=== PATIENT | female | born 1955 | race Caucasian/White ===

== ENCOUNTER 2019-02-21 16:04 | Emergency (ER) | payer BC ==
[~2019-02-21] VITALS: Ht 160 cm; Wt 73.9 kg
[~2019-02-21 16:04] MED LIST: ALBU2.5V8 IH; ATOR20TA58 PO; LISI10TA2 PO; LORA10TA68 PO; OMEP1CAP18 PO
--- NOTE | 2019-02-21 16:24 | PHYS DOC ---
Past Medical History Past Medical History: High Cholesterol, Hypertension (IDALIA HERNANDEZ APRN) Past Surgical History: Cholecystectomy, Hysterectomy Additional Past Surgical Histo: RIGHT AND LEFT THUMB (IDALIA HERNANDEZ APRN) Alcohol Use: Occasionally Drug Use: None (IDALIA HERNANDEZ APRN) Adult General Chief Complaint Chief Complaint: UPPER EXTREMITY INJURY HPI HPI Patient is a 63 year old female who presents with with a fall that happened around 3:00 PM today. The patient states that she was walking to her kitchen and she tripped over [employer] and fell. She states she fell with her right arm outstretched she states that she's having right wrist pain, right upper arm pain, and right shoulder pain. She has a deformity of the right shoulder. She rates her pain as 8 out of 10 in severity and sharp. She states that she was given 100 g of fentanyl and that has helped. (IDALIA HERNANDEZ APRN) Review of Systems Review of Systems Constitutional: Denies fever or chills [] Eyes: Denies change in visual acuity, redness, or eye pain [] HENT: Denies nasal congestion or sore throat [] Respiratory: Denies cough or shortness of breath [] Cardiovascular: No additional information not addressed in HPI [] GI: Denies abdominal pain, nausea, vomiting, bloody stools or diarrhea [] : Denies dysuria or hematuria [] Musculoskeletal: Reports R wrist, humerus, and shoulder pain. Integument: Denies rash or skin lesions [] Neurologic: Denies headache, focal weakness or sensory changes [] Endocrine: Denies polyuria or polydipsia [] Complete systems were reviewed and found to be within normal limits, except as documented in this note. (IDALIA HERNANDEZ APRN) Current Medications Current Medications Current Medications Medications (Trade) Dose Ordered Sig/Yani Start Time Stop Time Status Last Admin Dose Admin Fentanyl Citrate (Fentanyl 2ml Vial) 50 mcg 1X ONCE 02/21/19 17:00 02/21/19 17:01 DC 02/21/19 17:39 50 MCG Propofol (Diprivan) 200 mg 1X ONCE 02/21/19 17:00 02/21/19 17:01 DC 02/21/19 17:43 200 MG Sodium Chloride 1,000 ml @ 75 mls/hr 1X ONCE 02/21/19 17:00 02/22/19 06:19 02/21/19 17:24 75 MLS/HR (REBECCA ESQUEDA MD) Allergies Allergies Allergies Coded Allergies Type Severity Reaction Last Updated Verified dicyclomine Allergy Severe swelling 07/09/14 Yes diphenhydramine HCl Allergy Intermediate HIVES 04/26/13 Yes Sulfa (Sulfonamide Antibiotics) Allergy Mild RASH 04/26/13 Yes (REBECCA ESQUEDA MD) Physical Exam Physical Exam Constitutional: Well developed, well nourished, no acute distress, non-toxic appearance. [] HENT: Normocephalic, atraumatic, bilateral external ears normal, oropharynx moist, no oral exudates, nose normal. [] Eyes: PERRLA, EOMI, conjunctiva normal, no discharge. [] Neck: Normal range of motion, no tenderness, supple, no stridor. [] Cardiovascular:Heart rate regular rhythm, no murmur [] Lungs & Thorax: Bilateral breath sounds clear to auscultation [] Abdomen: Bowel sounds normal, soft, no tenderness, no masses, no pulsatile masses. [] Skin: Warm, dry, no erythema, no rash. [] Back: No tenderness, no CVA tenderness. [] Extremities: Tenderness to R wrist, humerus, and shoulder. Shoulder looks deformed, and appears to be dislocated. Bilateral radial pulses are equal and intact. Neurologic: Alert and oriented X 3, normal motor function, normal sensory function, no focal deficits noted. [] Psychologic: Affect normal, judgement normal, mood normal. [] (IDALIA HERNANDEZ APRN) Current Patient Data Vital Signs Vital Signs Date Time Temp Pulse Resp B/P (MAP) Pulse Ox O2 Delivery O2 Flow Rate FiO2 02/21/19 17:39 21 98 Nasal Cannula 2.0 02/21/19 16:07 97.4 67 121/63 (82) 97.4 (REBECCA ESQUEDA MD) EKG EKG [] (IDALIA HERNANDEZ APRN) Radiology/Procedures Radiology/Procedures [facility] [address] [place], [place] [id number] IMAGING REPORT Signed PATIENT: ALICJA MURPHY JACCOUNT: [id number] : 1955 LOCATION: ER AGE: 63 SEX: F EXAM STATUS: REG ER ORD. PHYSICIAN: IDALIA HERNANDEZ APRN REASON: fall PROCEDURE: WRIST 3V RIGHT EXAM: Right wrist, 3 views per HISTORY: Fall. COMPARISON: None. FINDINGS: 3 views of the right wrist are obtained. There is no fracture, dislocation or subluxation. IMPRESSION: No acute osseous finding. Electronically signed by: Nidhi Lee MD (02/21/2019 4:51 PM) [place] [id number] DICTATED and SIGNED BY: NIDHI LEE MD DATE: 02/21/[address] [address] IMAGING REPORT Signed PATIENT: ALICJA MURPHYCOUNT: [id number] : 1955 LOCATION: ER AGE: 63 SEX: F EXAM STATUS: REG ER ORD. PHYSICIAN: IDALIA HERNANDEZ APRN REASON: fall PROCEDURE: HUMERUS RIGHT EXAM: Right humerus, 2 views. HISTORY: Fall. COMPARISON: None. FINDINGS: 2 views the right humerus are obtained. There is an anterior right shoulder dislocation. No concomitant fracture is seen. IMPRESSION: Anterior right shoulder dislocation. Sonographic follow-up following closed reduction is recommended. Electronically signed by: Nidhi Lee MD (02/21/2019 4:50 PM) [place] [id number] DICTATED and SIGNED BY: NIDHI LEE MD DATE: 02/21/191649 [][address] [address] IMAGING REPORT Signed PATIENT: ALICJA MURPHYCOUNT: [id number] : 1955 LOCATION: ER AGE: 63 SEX: F EXAM STATUS: REG ER ORD. PHYSICIAN: IDALIA HERNANDEZ APRN REASON: fall PROCEDURE: SHOULDER 2+V RIGHT EXAM: Right shoulder, 2 views. HISTORY: Fall. COMPARISON: None. FINDINGS: 2 views of the right shoulder obtained. There is an anterior right shoulder dislocation. No convincing concomitant fracture is seen. There is suspected right lower lobe atelectasis. IMPRESSION: Right shoulder dislocation. Radiographic follow-up following closed reduction is recommended. Electronically signed by: Nidhi Lee MD (02/21/2019 4:48 PM) [id number] DICTATED and SIGNED BY: NIDHI LEE MD DATE: 02/21/19 5726 (IDALIA HERNANDEZ APRN) Course & Med Decision Making Course & Med Decision Making Pertinent Labs and Imaging studies reviewed. (See chart for details) Will get imaging. Discussed with patient that if pain worsen to let me know. Her pain was under control under initial assessment from Fentanyl given en route by EMS. Imaging showed a dislocated shoulder. Discussed patient with Dr. Esqueda who performed a conscious sedation and reduced shoulder. Patient was placed in shoulder immobilizer and post reduction shoulder x-ray was performed that showed the shoulder in place. Will d/c home to follow up with orthopedics. (IDALIA HERNANDEZ APRN) Dragon Disclaimer Dragon Disclaimer This electronic medical record was generated, in whole or in part, using a voice recognition dictation system. (IDALIA HERNANDEZ APRN) Departure Departure Impression: Primary Impression: Shoulder dislocation Additional Impression: Fall Disposition: 01 HOME, SELF-CARE Condition: STABLE Referrals: ADDY HESS MD (PCP) RANDALL SULLIVAN MD Patient Instructions: Shoulder Dislocation, Shoulder Immobilizer Additional Instructions: Thank you for visiting [facility]. We appreciate you trusting us with your care. If any additional problems come up don't hesitate to return to visit us. Please follow up with your primary care provider so they can plan additional care if needed and know about the problem that you had. If symptoms worsen come back to the Emergency Department. Any concerning symptoms that start such as chest pain, shortness of air, weakness or numbness on one side of the body, running high fevers or any other concerning symptoms return to the ER. Joint Reduction Procedure Joint Indication: Right shoulder dislocation Consent: Consent was obtained. Procedure: The pre-reduction exam showed distal perfusion and neurologic function to be normal.. The patient was placed in the appropriate position. Anesthesia/pain control with 50 g of fentanyl and 100 mg of propofol was given. Reduction of the right shoulder anterior dislocation was performed by manipulation. Post reduction films were obtained and revealed satisfactory reduction. A post-reduction exam revealed distal perfusion and neurologic function to be normal. The affected area was immobilized with a shoulder immobilizer. The patient tolerated the procedure well. Complications: none. (REBECCA ESQUEDA MD) Joint Indication: Joint dislocation Consent: Consent was obtained. Procedure: The pre-reduction exam showed distal perfusion and neurologic function to be normal.. The patient was placed in the appropriate position. Anesthesia/pain control [ANESTHESIA]. Reduction of the [LOCATION] was performed by [METHOD]. Post reduction films were obtained and revealed satisfactory reduction. A post-reduction exam revealed distal perfusion and neurologic function to be normal. The affected area was immobilized with [IMMOB TYPE]. The patient tolerated the procedure well. Complications: none. (IDALIA HERNANDEZ APRN) MODERATE SEDATION ASSESSMENT* RISKS/ALTERNATIVES Risks/Alternatives Risks and alternatives of this type of sedation and procedure discussed with: RISK/ALTERNATIVES: Patient (REBECCA ESQUEDA MD) Risks/Alternatives Risks and alternatives of this type of sedation and procedure discussed with: (IDALIA HERNANDEZ APRN) H & P ON CHART H & P H & P on chart and reviewed for co-morbid conditions and appropriate labs. H&P ON CHART: Yes (REBECCA ESQUEDA MD) H & P H & P on chart and reviewed for co-morbid conditions and appropriate labs. (IDALIA HERNANDEZ APRN) STATUS PREG STATUS ASSESSED: N/A (REBECCA ESQUEDA MD) MEDS/ALLERGIES REVIEWED Meds/Allergies Reviewed Medications and Allergies including time and route of recently administered narcotics and sedatives. MEDS/ALLERGIES REVIEWED: Yes (REBECCA ESQUEDA MD) Meds/Allergies Reviewed Medications and Allergies including time and route of recently administered narcotics and sedatives. (IDALIA HERNANDEZ APRN) ASA RATING ASA RATING: I (REBECCA ESQUEDA MD) AIRWAY ASSESSMENT Airway Assessment Airway patency, oral function limitations, presence of caps, crowns, dentures, partials, and ability to extend neck assessed. AIRWAY ASSESSMENT: Yes (REBECCA ESQUEDA MD) Airway Assessment Airway patency, oral function limitations, presence of caps, crowns, dentures, partials, and ability to extend neck assessed. (IDALIA HERNANDEZ APRN) MALLAMPATI SCORE MALLAMPATI SCORE: I (REBECCA ESQUEDA MD) PRE-SEDATION ASSESSMENT PRE-SEDATION ASSESSMENT: Yes (REBECCA ESQUEDA MD) Procedural Sedation Proc Sed Indication: Right shoulder anterior dislocation Consent: I have discussed with the patient and/or the patient client representative the indication, alternatives, and the possible risks and /or complications of the planned procedure and the anesthesia methods. The patient and/or patient client representative appear to understand and agree to proceed. Pre-Sedation Documentation and Exam: Normal neuro exam Airway Assessment: normal. Prior History of Anesthesia Complications: none. ASA Classification: I Sedation/ Anesthesia Plan: Fentanyl and propofol Medications Used: see nursing notes. Monitoring and Safety: The patient was placed on a tax assessor and vital signs, pulse oximetry and level of consciousness were continuously evaluated throughout the procedure. The patient was closely monitored until recovery from the medications was complete and the patient had returned to baseline status. Respiratory therapy was on standby at all times during the procedure. (The following sections must be completed) Post-Sedation Vital Signs: BP- 113/71 HR-82 o2 sat-95%(like pre-procedure b/o smoking) Post-Sedation Exam: normal Complications: none. (REBECCA ESQUEDA MD) Proc Sed Indication: [] Consent: I have discussed with the patient and/or the patient client representative the indication, alternatives, and the possible risks and /or complications of the planned procedure and the anesthesia methods. The patient and/or patient client representative appear to understand and agree to proceed. Pre-Sedation Documentation and Exam: [] Airway Assessment: normal. Prior History of Anesthesia Complications: none. ASA Classification: [] Sedation/ Anesthesia Plan: [] Medications Used: see nursing notes. Monitoring and Safety: The patient was placed on a tax assessor and vital signs, pulse oximetry and level of consciousness were continuously evaluated throughout the procedure. The patient was closely monitored until recovery from the medications was complete and the patient had returned to baseline status. Respiratory therapy was on standby at all times during the procedure. (The following sections must be completed) Post-Sedation Vital Signs: [EDM.VS] Post-Sedation Exam: [] Complications: none. Vital Signs Vital Signs Date Time Temp Pulse Resp B/P (MAP) Pulse Ox O2 Delivery O2 Flow Rate FiO2 02/21/19 17:39 21 98 Nasal Cannula 2.0 02/21/19 16:07 97.4 67 121/63 (82) 97.4 (IDALIA HERNANDEZ APRN) Problem Qualifiers Primary Impression: Shoulder dislocation Encounter type: initial encounter Laterality: right Qualified Codes: S43.004A - Unspecified dislocation of right shoulder joint, initial encounter Additional Impression: Fall Encounter type: initial encounter Qualified Codes: W19.XXXA - Unspecified fall, initial encounter IDALIA HERNANDEZ APRN Feb 21, 2019 16:24 REBECCA ESQUEDA MD Feb 21, 2019 18:22
[2019-02-21] MEDS ORDERED: fentaNYL PF VIAL 100 MCG/2 ML VIAL IV STA (16:45)
--- NOTE | 2019-02-21 16:51 | RAD ---
EXAM: Right shoulder, 2 views. HISTORY: Fall. COMPARISON: None. FINDINGS: 2 views of the right shoulder obtained. There is an anterior right shoulder dislocation. No convincing concomitant fracture is seen. There is suspected right lower lobe atelectasis. IMPRESSION: Right shoulder dislocation. Radiographic follow-up following closed reduction is recommended. Electronically signed by: Nidhi Arce MD (02/21/2019 4:48 PM) [id number]
--- NOTE | 2019-02-21 16:53 | RAD ---
EXAM: Right humerus, 2 views. HISTORY: Fall. COMPARISON: None. FINDINGS: 2 views the right humerus are obtained. There is an anterior right shoulder dislocation. No concomitant fracture is seen. IMPRESSION: Anterior right shoulder dislocation. Sonographic follow-up following closed reduction is recommended. Electronically signed by: Nidhi Arce MD (02/21/2019 4:50 PM) [id number]
--- NOTE | 2019-02-21 16:55 | RAD ---
EXAM: Right wrist, 3 views per HISTORY: Fall. COMPARISON: None. FINDINGS: 3 views of the right wrist are obtained. There is no fracture, dislocation or subluxation. IMPRESSION: No acute osseous finding. Electronically signed by: Nidhi Arce MD (02/21/2019 4:51 PM) [place] [id number]
[2019-02-21] MEDS ORDERED: IV NORMAL SALINE 1000ML BAG 1,000 ML IV ONE (17:00)
[2019-02-21] MEDS ORDERED: PROPOFOL 10 MG/ML (20ML) VIAL. IV ONE (17:00)
[2019-02-21] MEDS ORDERED: fentaNYL PF VIAL 100 MCG/2 ML VIAL IVP ONE (17:00)
[2019-02-21 17:34] VITALS: BP 160/75
[2019-02-21 18:54] VITALS: BP 108/52
--- NOTE | 2019-02-21 19:06 | RAD ---
SHOULDER RIGHT 1V History: Post reduction Technique: 2 views right shoulder. Comparison: February 21, 2019 Findings: Interval reduction anterior inferior glenohumeral dislocation. No fracture. Soft tissues unremarkable. Mild acromioclavicular DJD. Patchy right basilar opacity, may represent atelectasis, unchanged. Impression: 1. Interval reduction right glenohumeral dislocation. Electronically signed by: Mark Tovar DO (02/21/2019 7:03 PM) [facility]
== END 2019-02-21 19:07 | disposition home or self-care (01) ==
LOC: ER 16:04
DX: S43.004A Unspecified dislocation of right shoulder joint, initial encounter (principal); E78.00 Pure hypercholesterolemia, unspecified; I10 Essential (primary) hypertension; Z88.8 Allergy status to other drugs, medicaments and biological substances; Z88.2 Allergy status to sulfonamides; W18.09XA Striking against other object with subsequent fall, initial encounter; Y93.01 Activity, walking, marching and hiking; Y92.090 Kitchen in other non-institutional residence as the place of occurrence of the external cause; Y99.8 Other external cause status
CPT/HCPCS: 23650; 73020; 73030; 73060; 73110; 96374; 99285; J2704; J3010; J7030

== ENCOUNTER 2021-04-29 15:29 | Observation (INO) | payer SELFPAY ==
[~2021-04-29] VITALS: Ht 152.4 cm; Wt 76.7 kg
[~2021-04-29 15:29] MED LIST changes: +LISI10TA16 PO; -LISI10TA2 PO
[2021-04-29] MEDS ORDERED: ASPIRIN CHEWABLE 81 MG TABLET. PO ONE (16:00)
--- NOTE | 2021-04-29 16:04 | PHYS DOC ---
Past Medical History Past Medical History: High Cholesterol, Hypertension Past Surgical History: Cholecystectomy, Hysterectomy Additional Past Surgical Histo: RIGHT AND LEFT THUMB Smoking Status: Current Every Day Smoker Alcohol Use: Occasionally Drug Use: None General Adult EDM: Chief Complaint: CHEST PAIN HPI: HPI: Patient is a 65 year old female who present to ER for evaluation of substernal chest pain that radiated to her shoulder and her jaw started 3 AM this morning. Patient felt like indigestion. Patient denies any cough or trouble breathing, denies any fever. Patient denies any abdominal pain, no nausea vomiting. Patient is a smoker, she smoked 1/2 pack a day. Patient is not on oxygen at home. Patient denies any history of coronary artery disease, no history of diabetic, no history of blood clot disorder. Patient does have history of hypertension. Patient mom had history of coronary artery disease with multiple heart stents. Patient was vaccinated for COVID-19, she had not received the booster shot yet. Review of Systems: Review of Systems: Constitutional: Denies fever or chills. [] Eyes: Denies change in visual acuity. [] HENT: Denies nasal congestion or sore throat. [] Respiratory: Denies cough or shortness of breath. [] Cardiovascular: Positive for chest pain. GI: Denies abdominal pain, nausea, vomiting, bloody stools or diarrhea. [] : Denies dysuria. [] Musculoskeletal: Denies back pain or joint pain. [] Integument: Denies rash. [] Neurologic: Denies headache, focal weakness or sensory changes. [] Endocrine: Denies polyuria or polydipsia. [] Lymphatic: Denies swollen glands. [] Psychiatric: Denies depression or anxiety. [] Heart Score: C/O Chest Pain: Yes HEART Score for Chest Pain: HEART Score for Chest Pain Response (Comments) Value History Moderately Suspicious 1 ECG Nonspecific Repolarizatio 1 Age >45 - < 65 1 Risk Factors 1 or 2 Risk Factors 1 Troponin < Normal Limit 0 Total 4 Risk Factors: Risk Factors: DM, Current or recent (<one month) smoker, HTN, HLP, family history of CAD, obesity. Risk Scores: Score 0 - 3: 2.5% MACE over next 6 weeks - Discharge Home Score 4 - 6: 20.3% MACE over next 6 weeks - Admit for Clinical Observation Score 7 - 10: 72.7% MACE over next 6 weeks - Early Invasive Strategies Current Medications: Current Medications Medications (Trade) Dose Ordered Sig/Yani Start Time Stop Time Status Last Admin Dose Admin Aspirin (Aspirin Chewable) 324 mg 1X ONCE 04/29/21 16:00 04/29/21 16:01 Allergies: Allergies: Allergies Coded Allergies Type Severity Reaction Last Updated Verified dicyclomine Allergy Severe swelling 07/09/14 Yes diphenhydramine HCl Allergy Intermediate HIVES 04/26/13 Yes Sulfa (Sulfonamide Antibiotics) Allergy Mild RASH 04/26/13 Yes Physical Exam: PE: Constitutional: Well developed, well nourished, no acute distress, non-toxic appearance. [] HENT: Normocephalic, atraumatic, bilateral external ears normal, oropharynx moist, no oral exudates, nose normal. [] Eyes: PERRLA, EOMI, conjunctiva normal, no discharge. [] Neck: Normal range of motion, no tenderness, supple, no stridor. [] Cardiovascular:Heart rate regular rhythm, no murmur [] Lungs & Thorax: Bilateral breath sounds clear to auscultation [] Abdomen: Bowel sounds normal, soft, no tenderness, no masses, no pulsatile masses. [] Skin: Warm, dry, no erythema, no rash. [] Back: No tenderness, no CVA tenderness. [] Extremities: No tenderness, no cyanosis, no clubbing, ROM intact, no edema. [] Neurologic: Alert and oriented X 3, normal motor function, normal sensory function, no focal deficits noted. [] Psychologic: Affect normal, judgement normal, mood normal. [] Current Patient Data: Labs: Laboratory Tests Test 04/29/21 16:40 White Blood Count 8.3 x10^3/uL Red Blood Count 5.30 x10^6/uL Hemoglobin 15.1 g/dL Hematocrit 45.1 % Mean Corpuscular Volume 85 fL Mean Corpuscular Hemoglobin 29 pg Mean Corpuscular Hemoglobin Concent 34 g/dL Red Cell Distribution Width 14.4 % Platelet Count 98 x10^3/uL Neutrophils (%) (Auto) 48 % Lymphocytes (%) (Auto) 45 % Monocytes (%) (Auto) 4 % Eosinophils (%) (Auto) 2 % Basophils (%) (Auto) 1 % Neutrophils # (Auto) 4.0 x10^3/uL Lymphocytes # (Auto) 3.7 x10^3/uL Monocytes # (Auto) 0.3 x10^3/uL Eosinophils # (Auto) 0.1 x10^3/uL Basophils # (Auto) 0.1 x10^3/uL Sodium Level 141 mmol/L Potassium Level 3.8 mmol/L Chloride Level 104 mmol/L Carbon Dioxide Level 24 mmol/L Anion Gap 13 Blood Urea Nitrogen 17 mg/dL Creatinine 0.7 mg/dL Estimated GFR (Cockcroft-Gault) 84.5 BUN/Creatinine Ratio 24 Glucose Level 103 mg/dL Calcium Level 9.8 mg/dL Magnesium Level 2.1 mg/dL Total Bilirubin 0.5 mg/dL Aspartate Amino Transf (AST/SGOT) 32 U/L Alanine Aminotransferase (ALT/SGPT) 64 U/L Alkaline Phosphatase 118 U/L Troponin I High Sensitivity < 4 ng/L HD-Voz-U-Type Natriuretic Peptide 20 pg/mL Total Protein 7.5 g/dL Albumin 4.1 g/dL Albumin/Globulin Ratio 1.2 Lipase 90 U/L Current Medications Medications (Trade) Dose Ordered Sig/Yani Route PRN Reason Start Time Stop Time Status Last Admin Dose Admin Aspirin (Aspirin Chewable) 324 mg 1X ONCE PO 04/29/21 16:00 04/29/21 16:01 DC 04/29/21 16:06 Vital Signs: Vital Signs Date Time Temp Pulse Resp B/P (MAP) Pulse Ox O2 Delivery O2 Flow Rate FiO2 04/29/21 15:29 98.3 93 18 157/88 (111) 98 Room Air 98.3 EKG: EKG: EKG was done at 1539, heart rate of 86 bpm, sinus rhythm, no ST segment elevation. Radiology/Procedures: Radiology/Procedures: [][facility] [address] [place] [address] IMAGING REPORT Signed PATIENT: ALICJA MURPHYCOUNT: [id number] : 1955 LOCATION: ER AGE: 65 SEX: F EXAM STATUS: REG ER ORD. PHYSICIAN: LAY BACK DO REASON: CHEST PAIN PROCEDURE: PORTABLE CHEST 1V EXAM: CHEST 1 VIEW History: Chest pain COMPARISON: 07/22/2014 TECHNIQUE: Single portable radiograph of the chest FINDINGS: The cardiac silhouette is unremarkable. The lungs are clear bilaterally. Minimal left lung base atelectasis. IMPRESSION: Minimal left lung base atelectasis Electronically signed by: Chalo Chavarria MD (04/29/2021 4:18 PM) [id number] DICTATED and SIGNED BY: CHALO CHAVARRIA MD DATE: 04/29/21 [id number] Course & Med Decision Making: Course & Med Decision Making Pertinent Labs and Imaging studies reviewed. (See chart for details) Patient is a 65-year-old female who present to ER with chest pain, EKG cardiac enzymes came back normal so far, due to her risk factor patient will be admitted for observation. Dragon Disclaimer: Dragon Disclaimer: This electronic medical record was generated, in whole or in part, using a voice recognition dictation system. Departure Departure Impression: Primary Impression: Chest pain Disposition: ADMITTED INPATIENT Admitting Physician: MARYJO (Dr. Huerta) Condition: STABLE Referrals: ADDY HESS MD (PCP) LAY BACK DO Apr 29, 2021 16:04
--- NOTE | 2021-04-29 16:20 | RAD ---
EXAM: CHEST 1 VIEW History: Chest pain COMPARISON: 07/22/2014 TECHNIQUE: Single portable radiograph of the chest FINDINGS: The cardiac silhouette is unremarkable. The lungs are clear bilaterally. Minimal left lung base atelectasis. IMPRESSION: Minimal left lung base atelectasis Electronically signed by: Chalo Chavarria MD (04/29/2021 4:18 PM) [id number]
[2021-04-29 16:57] LABS: BASO # 0.1 x10^3/uL (0.0-0.2); BASO % 1 % (0-3); EOS # 0.1 x10^3/uL (0.0-0.7); EOS % 2 % (0-3); HEMATOCRIT 45.1 % (36.0-47.0); HEMOGLOBIN 15.1 g/dL (12.0-15.5); LYMPH # 3.7 x10^3/uL (1.0-4.8); LYMPH % 45 % (24-48); MEAN CORPUSCULAR HEMOGLOBIN 29 pg (25-35); MEAN CORPUSCULAR HGB CONC 34 g/dL (31-37); MEAN CORPUSCULAR VOLUME 85 fL (79-100); MONO # 0.3 x10^3/uL (0.0-1.1); MONO % 4 % (0-9); NEUT % 48 % (31-73); PLATELET COUNT 98 x10^3/uL (140-400); RED CELL DISTRIBUTION WIDTH 14.4 % (11.5-14.5); WHITE BLOOD COUNT 8.3 x10^3/uL (4.0-11.0)
[2021-04-29 17:15] LABS: CALCIUM 9.8 mg/dL (8.5-10.1); CREATININE 0.7 mg/dL (0.6-1.0); GFR 84.5; POTASSIUM 3.8 mmol/L (3.5-5.1)
[2021-04-29 17:21] LABS: ALBUMIN 4.1 g/dL (3.4-5.0); ALBUMIN/GLOBULIN RATIO 1.2 (1.0-1.7); MAGNESIUM 2.1 mg/dL (1.8-2.4); TOTAL BILIRUBIN 0.5 mg/dL (0.2-1.0); TOTAL PROTEIN 7.5 g/dL (6.4-8.2)
[2021-04-29 18:01] LABS: BILIRUBIN,URINE NEGATIVE (NEG); CLARITY,URINE CLEAR; COLOR,URINE YELLOW; NITRITE,URINE NEGATIVE (NEG); PH,URINE 5.5 (<5.0-8.0); PROTEIN,URINE NEGATIVE (NEG-TRACE); UROBILINOGEN,URINE 0.2 mg/dL (0.2 mg/dL)
[2021-04-29] MEDS ORDERED: ONDANSETRON PF 4 MG/2 ML VIAL. IVP PRN (18:15)
--- NOTE | 2021-04-29 18:16 | PDOC1 ---
History and Physical Date of Admission Date of Admission DATE: 04/29/21 TIME: 18:13 Source Source: Patient History of Present Illness History of Present Illness Ms Snyder is a 65 year old female smoker with PMHx HTN, HLD who presents to ED c/o sudden onset chest pain. Pain began at 0300 on 04/29/21. Pain was sharp, burning and radiated into both sides of her jaw and her shoulder. She though it was bad acid reflux and has taken 4-5 tums every few hours with minimal improvement. No diaphoresis. A little nausea. No cough, no abdominal pain, no vomiting. No recent travel or sick contacts. She smokes 1/2 pack a day. Patient was vaccinated for COVID-19, she had not received the booster shot yet. She does have family history of mother with premature CAD with multiple stents She did have a cardiac evaluation in 2014, negative lexiscan MPI at the time. WBC 8.3, Hb 15.1, platelets 98, NA 141, K3.8, BUN 17, CR 0.7, glucose 103, calcium 9.8, mag 2.1 total bilirubin 0.5, AST 32, ALT 64, alkaline phosphatase 118, NT proBNP 28, high-sensitivity troponin is 4, albumin 4.1 EKG sinus rhythm rate of [address] segment elevations no T WI. Chest radiograph with some possible left basilar atelectasis otherwise no acute abnormalities. Admitted for observation Past Medical History Cardiovascular: HTN, Hyperlipidemia Pulmonary: No pertinent hx CENTRAL NERVOUS SYSTEM: Other GI: GERD Heme/Onc: No pertinent hx Hepatobiliary: No pertinent hx Psych: No pertinent hx Musculoskeletal: Osteoarthritis Rheumatologic: No pertinent hx Infectious disease: No pertinent hx Renal/: No pertinent hx Endocrine: No pertinent hx Past Surgical History Past Surgical History: Cholecystectomy, Hysterectomy, Other Family History Family History: Coronary Artery Disease Social History Smoke: <1 pack per day ALCOHOL: none Drugs: None Current Problem List Problem List Problems Medical Problems: (1) Chest pain Status: Acute Current Medications Current Medications Current Medications Aspirin (Aspirin Chewable) 324 mg 1X ONCE PO Last administered on 04/29/21at 16:06; Start 04/29/21 at 16:00; Stop 04/29/21 at 16:01; Status DC Active Scripts Active Proair Hfa Inhaler (Albuterol Sulfate) 8.5 Gm Hfa.aer.ad 2 Puff IH PRN Q4-6HRS Reported Claritin (Loratadine) 10 Mg Tablet 1 Tab PO DAILY Zegerid 20 Mg Capsule (Omeprazole/Sodium Bicarbonate) 1 Each Capsule 1 Each PO DAILY Lisinopril 10 Mg Tablet 10 Mg PO DAILY Atorvastatin Calcium 20 Mg Tablet 20 Mg PO DAILY Allergies Allergies: Coded Allergies: dicyclomine (Verified Allergy, Severe, swelling, 07/09/14) diphenhydramine HCl (Verified Allergy, Intermediate, HIVES, 04/26/13) Sulfa (Sulfonamide Antibiotics) (Verified Allergy, Mild, RASH, 04/26/13) ROS General: YES: Fatigue, Malaise; No: Chills, Night Sweats, Appetite, Other PSYCHOLOGICAL ROS: YES: Anxiety; No: Behavioral Disorder, Concentration difficultie, Decreased libido, Depression, Disorientation, Hallucinations, Hostility, Irritablity, Memory difficulties, Mood Swings, Obsessive thoughts, Physical abuse, Sexual abuse, Sleep disturbances, Suicidal ideation, Other Eyes: No Blurry vision, No Decreased vision, No Double vision, No Dry eyes, No Excessive tearing, No Eye Pain, No Itchy Eyes, No Loss of vision, No Photophobia, No Scotomata, No Uses contacts, No Uses glasses, No Other HEENT: No: Heacaches, Visual Changes, Hearing change, Nasal congestion, Nasal discharge, Oral lesions, Sinus pain, Sore Throat, Epistaxis, Sneezing, Snoring, Tinnitus, Vertigo, Vocal changes, Other ALLERGY AND IMMUNOLOGY: No: Hives, Insect Bite Sensitivity, Itchy/Watery Eyes, Nasal Congestion, Post Nasal Drip, Seasonal Allergies, Other Hematological and Lymphatic: No: Bleeding Problems, Blood Clots, Blood Transfusions, Brusing, Night Sweats, Pallor, Swollen Lymph Nodes, Other ENDOCRINE: No: Breast Changes, Galactorrhea, Hair Pattern Changes, Hot Flashes, Malaise/lethargy, Mood Swings, Palpitations, Polydipsia/polyuria, Skin Changes, Temperature Intolerance, Unexpected Weight Changes, Other Breast: No New/Changing Breast Lumps, No Nipple changes, No Nipple discharge, No Other Respiratory: No: Cough, Hemoptysis, Orthopnea, Pleuritic Pain, Shortness of breath, SOB with excertion, Sputum Changes, Stridor, Tachypnea, Wheezing, Other Cardiovascular: yes Chest Pain; No Palpitations, No Orthopnea, No Paroxysmal Noc. Dyspnea, No Edema, No Lt Headedness, No Other Gastrointestinal: Yes Nausea; No Vomiting, No Abdominal Pain, No Diarrhea, No Constipation, No Melena, No Hematochezia, No Other Genitourinary: No Dysuria, No Frequency, No Incontinence, No Hematuria, No Retention, No Discharge, No Urgency, No Pain, No Flank Pain, No Other, No , No , No , No , No , No , No Musculoskeletal: No Gait Disturbance, No Joint Pain, No Joint Stiffness, No Joint Swelling, No Muscle Pain, No Muscular Weakness, No Pain In:, No Swelling In:, No Other Neurological: No Behavorial Changes, No Bowel/Bladder ControlChng, No Confusion, No Dizziness, No Gait Disturbance, No Headaches, No Impaired Coord/balance, No Memory Loss, No Numbness/Tingling, No Seizures, No Speech Problems, No Tremors, No Visual Changes, No Weakness, No Other Skin: No Dry Skin, No Eczema, No Hair Changes, No Lumps, No Mole Changes, No Mottling, No Nail Changes, No Pruritus, No Rash, No Skin Lesion Changes, No Other, No Acne Physical Exam General: Alert, Oriented X3, Cooperative, mild distress HEENT: Atraumatic, PERRLA, EOMI, Mucous membr. moist/pink Lungs: Clear to auscultation, Normal air movement Heart: S1S2, RRR, no thrills, no rubs, no gallops, no murmurs Abdomen: Normal bowel sounds, Soft, No tenderness, No hepatosplenomegaly, No masses Rectal Exam: not examined Extremities: No clubbing, No cyanosis, No edema, Normal pulses, No tenderness/swelling Skin: No rashes, No breakdown, No significant lesion Neuro: Normal gait, Normal speech, Strength at 5/5 X4 ext, Normal tone, Sensation intact, Cranial nerves 3-12 NL, Reflexes 2+ Psych/Mental Status: Mental status NL, Mood NL Vitals Vitals Vital Signs Date Time Temp Pulse Resp B/P (MAP) Pulse Ox O2 Delivery O2 Flow Rate FiO2 04/29/21 15:29 98.3 93 18 157/88 (111) 98 Room Air 98.3 Labs Labs Laboratory Tests Test 04/29/21 16:40 White Blood Count 8.3 x10^3/uL (4.0-11.0) Red Blood Count 5.30 x10^6/uL (3.50-5.40) Hemoglobin 15.1 g/dL (12.0-15.5) Hematocrit 45.1 % (36.0-47.0) Mean Corpuscular Volume 85 fL (79-100) Mean Corpuscular Hemoglobin 29 pg (25-35) Mean Corpuscular Hemoglobin Concent 34 g/dL (31-37) Red Cell Distribution Width 14.4 % (11.5-14.5) Platelet Count 98 x10^3/uL (140-400) Neutrophils (%) (Auto) 48 % (31-73) Lymphocytes (%) (Auto) 45 % (24-48) Monocytes (%) (Auto) 4 % (0-9) Eosinophils (%) (Auto) 2 % (0-3) Basophils (%) (Auto) 1 % (0-3) Neutrophils # (Auto) 4.0 x10^3/uL (1.8-7.7) Lymphocytes # (Auto) 3.7 x10^3/uL (1.0-4.8) Monocytes # (Auto) 0.3 x10^3/uL (0.0-1.1) Eosinophils # (Auto) 0.1 x10^3/uL (0.0-0.7) Basophils # (Auto) 0.1 x10^3/uL (0.0-0.2) Sodium Level 141 mmol/L (136-145) Potassium Level 3.8 mmol/L (3.5-5.1) Chloride Level 104 mmol/L (98-107) Carbon Dioxide Level 24 mmol/L (21-32) Anion Gap 13 (6-14) Blood Urea Nitrogen 17 mg/dL (7-20) Creatinine 0.7 mg/dL (0.6-1.0) Estimated GFR (Cockcroft-Gault) 84.5 BUN/Creatinine Ratio 24 (6-20) Glucose Level 103 mg/dL (70-99) Calcium Level 9.8 mg/dL (8.5-10.1) Magnesium Level 2.1 mg/dL (1.8-2.4) Total Bilirubin 0.5 mg/dL (0.2-1.0) Aspartate Amino Transf (AST/SGOT) 32 U/L (15-37) Alanine Aminotransferase (ALT/SGPT) 64 U/L (14-59) Alkaline Phosphatase 118 U/L (46-116) Troponin I High Sensitivity < 4 ng/L (4-50) BP-Inw-Q-Type Natriuretic Peptide 20 pg/mL (0-124) Total Protein 7.5 g/dL (6.4-8.2) Albumin 4.1 g/dL (3.4-5.0) Albumin/Globulin Ratio 1.2 (1.0-1.7) Lipase 90 U/L (73-393) Laboratory Tests Test 04/29/21 16:40 White Blood Count 8.3 x10^3/uL (4.0-11.0) Red Blood Count 5.30 x10^6/uL (3.50-5.40) Hemoglobin 15.1 g/dL (12.0-15.5) Hematocrit 45.1 % (36.0-47.0) Mean Corpuscular Volume 85 fL (79-100) Mean Corpuscular Hemoglobin 29 pg (25-35) Mean Corpuscular Hemoglobin Concent 34 g/dL (31-37) Red Cell Distribution Width 14.4 % (11.5-14.5) Platelet Count 98 x10^3/uL (140-400) Neutrophils (%) (Auto) 48 % (31-73) Lymphocytes (%) (Auto) 45 % (24-48) Monocytes (%) (Auto) 4 % (0-9) Eosinophils (%) (Auto) 2 % (0-3) Basophils (%) (Auto) 1 % (0-3) Neutrophils # (Auto) 4.0 x10^3/uL (1.8-7.7) Lymphocytes # (Auto) 3.7 x10^3/uL (1.0-4.8) Monocytes # (Auto) 0.3 x10^3/uL (0.0-1.1) Eosinophils # (Auto) 0.1 x10^3/uL (0.0-0.7) Basophils # (Auto) 0.1 x10^3/uL (0.0-0.2) Sodium Level 141 mmol/L (136-145) Potassium Level 3.8 mmol/L (3.5-5.1) Chloride Level 104 mmol/L (98-107) Carbon Dioxide Level 24 mmol/L (21-32) Anion Gap 13 (6-14) Blood Urea Nitrogen 17 mg/dL (7-20) Creatinine 0.7 mg/dL (0.6-1.0) Estimated GFR (Cockcroft-Gault) 84.5 BUN/Creatinine Ratio 24 (6-20) Glucose Level 103 mg/dL (70-99) Calcium Level 9.8 mg/dL (8.5-10.1) Magnesium Level 2.1 mg/dL (1.8-2.4) Total Bilirubin 0.5 mg/dL (0.2-1.0) Aspartate Amino Transf (AST/SGOT) 32 U/L (15-37) Alanine Aminotransferase (ALT/SGPT) 64 U/L (14-59) Alkaline Phosphatase 118 U/L (46-116) Troponin I High Sensitivity < 4 ng/L (4-50) GQ-Keb-M-Type Natriuretic Peptide 20 pg/mL (0-124) Total Protein 7.5 g/dL (6.4-8.2) Albumin 4.1 g/dL (3.4-5.0) Albumin/Globulin Ratio 1.2 (1.0-1.7) Lipase 90 U/L (73-393) Images Images Chest radiograph: The cardiac silhouette is unremarkable. The lungs are clear bilaterally. Minimal left lung base atelectasis. IMPRESSION: Minimal left lung base atelectasis VTE Prophylaxis Ordered VTE Prophylaxis Devices: Yes VTE Pharmacological Prophylaxi: Yes Assessment/Plan Assessment/Plan Chest pain - typical chest pain. Troponin normal and EKG not concerning, nor is CXR. Mother with CAD and smoker are risk factors. Had negative echo and MPI in 2014 HTN - on lisinopril, controlled. HLP - on lipitor, GERD - on PPI. taking zegerid OTC. Will give protonix inpatient Smoker - has 30+ pack year history. Counseled for 9 minutes on cessation. Thrombocytopenia - no clear etiology. Needs outpatient monitoring Minimally elevated alkaline phosphatase - no biliary disease history, would recommend outpatient f/u FEN - regular diet PPX - lovenox FULL CODE Dispo - observation Justifications for Admission Other Justification PERLA CAIN MD Apr 29, 2021 18:16
[2021-04-29 18:20] LABS: BACTERIA,URINE FEW /HPF (0-FEW); RBC,URINE 0 /HPF (0-2)
[2021-04-29] MEDS ORDERED: hydrALAZINE 20 MG/ML VIAL. IVP PRN (21:30)
[2021-04-29] MEDS ORDERED: ALBUTEROL SULFATE 2.5 MG/3 ML NEBU. INH PRN (21:30)
[2021-04-29] MEDS ORDERED: ACETAMINOPHEN 325 MG TABLET. PO PRN (21:30)
[2021-04-29 21:45] VITALS: BP 153/92
[2021-04-29 23:35] VITALS: BP 110/60
[2021-04-30] MEDS: PANTOPRAZOLE 40 MG TABLET.DR. PO SCH ×3 (00:42→16:54)
[2021-04-30 03:10] VITALS: BP 110/72
[2021-04-30 07:00] VITALS: BP 136/65
--- NOTE | 2021-04-30 07:15 | EKG ---
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
--- NOTE | 2021-04-30 07:38 | PDOC2 ---
SARAVANAN GOMEZ CARPENTER HELPER 04/30/21 0738: CARDIAC CONSULT DATE OF CONSULT Date of Consult DATE: 04/30/21 TIME: 07:32 REASON FOR CONSULT Reason for Consult: Chest pain REFERRING PHYSICIAN Referring Physician: Deanna SOURCE Source: Chart review, Patient HISTORY OF PRESENT ILLNESS HISTORY OF PRESENT ILLNESS This is a pleasant 65 yo female admitted for complains of chest pain. Reports that she was sleeping and this woke her up. Mid chest pressure with right jaw tightness and has been ahving indigestion for a while without relief from other meds. Denies any SOA, fatigue and palpitations. No recent falls or injury. No hx of CAD, VTE. She is vaccinated and suppose to get her booster tomorrow. PAST MEDICAL HISTORY Past Medical History Cardiovascular: HTN, Hyperlipidemia Pulmonary: COPD CENTRAL NERVOUS SYSTEM: No pertinent history GI: GERD Heme/Onc: No pertinent hx Hepatobiliary: No pertinent hx Psych: No pertinent hx Musculoskeletal: Osteoarthritis Rheumatologic: No pertinent hx Infectious disease: No pertinent hx ENT: Allergic Rhinitis Renal/: No pertinent hx Endocrine: No pertinent hx Dermatology: No pertinent hx PAST SURGICAL HISTORY Past Surgical History Cholecystectomy, Hysterectomy, Other (bilateral trigger finger repair) FAMILY HISTORY Family History Coronary Artery Disease (brother in his 40s and mother in her 50s) SOCIAL HISTORY Smoke: 1 pack per day ALCOHOL: none Drugs: None Lives: with Family CURRENT MEDICATIONS CURRENT MEDICATIONS Current Medications Medications (Trade) Dose Ordered Sig/Yani Route PRN Reason Start Time Stop Time Status Last Admin Dose Admin Aspirin (Aspirin Chewable) 324 mg 1X ONCE PO 04/29/21 16:00 04/29/21 16:01 DC 04/29/21 16:06 Pantoprazole Sodium (Protonix) 40 mg BIDAC PO 04/29/21 21:30 04/30/21 06:10 ALLERGIES ALLERGIES: Coded Allergies: dicyclomine (Verified Allergy, Severe, swelling, 07/09/14) diphenhydramine HCl (Verified Allergy, Intermediate, HIVES, 04/26/13) Sulfa (Sulfonamide Antibiotics) (Verified Allergy, Mild, RASH, 04/26/13) ROS Review of System 14 point ROS evaluated with pertinent positives noted per HPI PHYSICAL EXAM General: Alert, Oriented X3, Cooperative, No acute distress HEENT: Atraumatic, Mucous membr. moist/pink Lungs: Clear to auscultation, Normal air movement Heart: Regular rate, Normal S1, Normal S2, No murmurs Abdomen: Soft, No tenderness Extremities: No cyanosis, No edema Skin: No breakdown, No significant lesion Neuro: Normal speech, Sensation intact Psych/Mental Status: Mental status NL, Mood NL MUSCULOSKELETAL: Osteoarthritic changes both hands VITALS/I&O VITALS/I&O: Vital Signs Date Time Temp Pulse Resp B/P (MAP) Pulse Ox O2 Delivery O2 Flow Rate FiO2 04/30/21 07:00 98.1 83 18 136/65 (88) 92 Room Air 98.1 I & O 04/29/21 04/29/21 04/30/21 15:00 23:00 07:00 Intake Total 200 ml Output Total 100 ml Balance 100 ml LABS Lab: Laboratory Tests Test 04/29/21 16:40 04/29/21 17:31 04/29/21 19:50 04/29/21 22:40 White Blood Count 8.3 x10^3/uL (4.0-11.0) Red Blood Count 5.30 x10^6/uL (3.50-5.40) Hemoglobin 15.1 g/dL (12.0-15.5) Hematocrit 45.1 % (36.0-47.0) Mean Corpuscular Volume 85 fL (79-100) Mean Corpuscular Hemoglobin 29 pg (25-35) Mean Corpuscular Hemoglobin Concent 34 g/dL (31-37) Red Cell Distribution Width 14.4 % (11.5-14.5) Platelet Count 98 x10^3/uL (140-400) L Neutrophils (%) (Auto) 48 % (31-73) Lymphocytes (%) (Auto) 45 % (24-48) Monocytes (%) (Auto) 4 % (0-9) Eosinophils (%) (Auto) 2 % (0-3) Basophils (%) (Auto) 1 % (0-3) Neutrophils # (Auto) 4.0 x10^3/uL (1.8-7.7) Lymphocytes # (Auto) 3.7 x10^3/uL (1.0-4.8) Monocytes # (Auto) 0.3 x10^3/uL (0.0-1.1) Eosinophils # (Auto) 0.1 x10^3/uL (0.0-0.7) Basophils # (Auto) 0.1 x10^3/uL (0.0-0.2) Sodium Level 141 mmol/L (136-145) Potassium Level 3.8 mmol/L (3.5-5.1) Chloride Level 104 mmol/L (98-107) Carbon Dioxide Level 24 mmol/L (21-32) Anion Gap 13 (6-14) Blood Urea Nitrogen 17 mg/dL (7-20) Creatinine 0.7 mg/dL (0.6-1.0) Estimated GFR (Cockcroft-Gault) 84.5 BUN/Creatinine Ratio 24 (6-20) H Glucose Level 103 mg/dL (70-99) H Calcium Level 9.8 mg/dL (8.5-10.1) Magnesium Level 2.1 mg/dL (1.8-2.4) Total Bilirubin 0.5 mg/dL (0.2-1.0) Aspartate Amino Transferase (AST) 32 U/L (15-37) Alanine Aminotransferase (ALT) 64 U/L (14-59) H Alkaline Phosphatase 118 U/L (46-116) H Troponin I High Sensitivity < 4 ng/L (4-50) L 4 ng/L (4-50) < 4 ng/L (4-50) L NJ-Rwt-H-Type Natriuretic Peptide 20 pg/mL (0-124) Total Protein 7.5 g/dL (6.4-8.2) Albumin 4.1 g/dL (3.4-5.0) Albumin/Globulin Ratio 1.2 (1.0-1.7) Lipase 90 U/L (73-393) Urine Collection Type Unknown Urine Color Yellow Urine Clarity Clear Urine pH 5.5 (<5.0-8.0) Urine Specific [place] 1.010 (1.000-1.030) Urine Protein Negative mg/dL (NEG-TRACE) Urine Glucose (UA) Negative mg/dL (NEG) Urine Ketones (Stick) Negative mg/dL (NEG) Urine Blood Trace (NEG) Urine Nitrite Negative (NEG) Urine Bilirubin Negative (NEG) Urine Urobilinogen Dipstick 0.2 mg/dL (0.2 mg/dL) Urine Leukocyte Esterase Negative (NEG) Urine RBC 0 /HPF (0-2) Urine WBC 1-4 /HPF (0-4) Urine Squamous Epithelial Cells Few /LPF Urine Bacteria Few /HPF (0-FEW) Thyroid Stimulating Hormone (TSH) 1.885 uIU/mL (0.358-3.74) Laboratory Tests 04/29/21 16:40 Laboratory Tests 04/29/21 16:40 ECHOCARDIOGRAM ECHOCARDIOGRAM <Conclusion> The left ventricle is normal size. The left ventricular systolic function is normal and the ejection fraction is within normal range. The Ejection Fraction is 60-65%. There is no significant aortic valvular stenosis. Doppler and Color Flow revealed no significant aortic regurgitation. Doppler and Color Flow revealed trace mitral regurgitation. Doppler and Color Flow revealed mild tricuspid regurgitation. The PA pressure was estimated at 38 mmHg. There is no evidence of significant pericardial effusion. DATE: 07/23/141808 STRESS TEST STRESS TEST Conclusion 1. No EKG evidence of stress-induced ischemia. 2. Nuclear images showed no reversible ischemia or infarct. 3. Normal left ventricular systolic function with an ejection fraction of greater than 70%. 4. Low risk Lexiscan nuclear stress test DATE: 07/23/141805 ASSESSMENT/PLAN ASSESSMENT/PLAN 1. Chest pain: trops nml, EKG NSR. typical features 2. HTN: controlled 3. HLP 4. GERD 5. Tobaccoism 6. Family hx of CAD Recommendations 1. Discussed MPI vs LHC as she is hesitant. 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 FLP, TTE 3. Continue ASA and secondary prevention measures. 4. Smoking cessation ANDRÉS CAROLINA MD 05/01/21 0850: CARDIAC CONSULT ASSESSMENT/PLAN ASSESSMENT/PLAN Patient seen and examined 04/30/2021. Agree with HUMANITIES DIVISION CHAIR's assessment and plan as stated above. SARAVANAN GOMEZ APRN Apr 30, 2021 07:38 ANDRÉS CAROLINA MD May 01, 2021 08:50
[2021-04-30] MEDS ORDERED: ASPIRIN ENTERIC COATED 81 MG TABLET.DR. PO SCH (08:00)
[2021-04-30 08:43] LABS: CHOLESTEROL/HDL RATIO 4.3
[2021-04-30] MEDS ORDERED: LISINOPRIL 10 MG TABLET PO SCH (09:00)
[2021-04-30] MEDS ORDERED: ATORVASTATIN CALCIUM 20 MG TABLET PO SCH (09:00)
[2021-04-30] MEDS ORDERED: CETIRIZINE HCL 10 MG TABLET. PO SCH (09:00)
[2021-04-30] MEDS ORDERED: ASPI-886 PO (10:08)
--- NOTE | 2021-04-30 10:08 | PDOC ---
[employer] PROGRESS NOTE Date of Service DOS: DATE: 04/30/21 TIME: 10:03 Chief Complaint Chief Complaint Chest pain - typical chest pain. Troponin normal and EKG not concerning, nor is CXR. Mother with CAD and smoker are risk factors. Had negative echo and MPI in 2014. She wishes to complete work-up outpatient. HTN - on lisinopril, controlled. HLP - on lipitor, GERD - on PPI. taking zegerid OTC. Will give protonix inpatient Smoker - has 30+ pack year history. Counseled for 9 minutes on cessation. Thrombocytopenia - no clear etiology. Needs outpatient monitoring Minimally elevated alkaline phosphatase - no biliary disease history, would recommend outpatient f/u FEN - regular diet PPX - lovenox FULL CODE Dispo - observation History of Present Illness History of Present Illness Ms Snyder is a 65 year old female smoker with PMHx HTN, HLD who presents to ED c/o sudden onset chest pain. Pain began at 0300 on 04/29/21. Pain was sharp, burning and radiated into both sides of her jaw and her shoulder. She though it was bad acid reflux and has taken 4-5 tums every few hours with minimal improvement. No diaphoresis. A little nausea. No cough, no abdominal pain, no vomiting. No recent travel or sick contacts. She smokes 1/2 pack a day. Patient was vaccinated for COVID-19, she had not received the booster shot yet. She does have family history of mother with premature CAD with multiple stents She did have a cardiac evaluation in 2014, negative lexiscan MPI at the time. WBC 8.3, Hb 15.1, platelets 98, NA 141, K3.8, BUN 17, CR 0.7, glucose 103, calcium 9.8, mag 2.1 total bilirubin 0.5, AST 32, ALT 64, alkaline phosphatase 118, NT proBNP 28, high-sensitivity troponin is 4, albumin 4.1 EKG sinus rhythm rate of [address] segment elevations no T WI. Chest radiograph with some possible left basilar atelectasis otherwise no acute abnormalities. Admitted for observation 04/30: No further chest pain. Final troponin negative. Patient is asking for food. P.o. trial to assess the severity of what is likely GERD would be appropriate. Echocardiogram pending. Patient wants to defer an angiogram and would prefer to have an outpatient stress test for further restratification Vitals/I&O Vitals/I&O: Vital Signs Date Time Temp Pulse Resp B/P (MAP) Pulse Ox O2 Delivery O2 Flow Rate FiO2 04/30/21 09:24 83 136/65 04/30/21 07:00 98.1 18 92 Room Air 98.1 I & O 04/29/21 04/29/21 04/30/21 15:00 23:00 07:00 Intake Total 200 ml Output Total 100 ml Balance 100 ml Physical Exam General: Alert, Oriented X3, Cooperative, No acute distress Heart: Regular rate, Normal S1, Normal S2, No murmurs Abdomen: Soft, No tenderness Extremities: No cyanosis, No edema Skin: No breakdown, No significant lesion Labs Labs: Laboratory Tests Test 04/29/21 16:40 04/29/21 17:31 04/29/21 19:50 04/29/21 22:40 White Blood Count 8.3 x10^3/uL (4.0-11.0) Red Blood Count 5.30 x10^6/uL (3.50-5.40) Hemoglobin 15.1 g/dL (12.0-15.5) Hematocrit 45.1 % (36.0-47.0) Mean Corpuscular Volume 85 fL (79-100) Mean Corpuscular Hemoglobin 29 pg (25-35) Mean Corpuscular Hemoglobin Concent 34 g/dL (31-37) Red Cell Distribution Width 14.4 % (11.5-14.5) Platelet Count 98 x10^3/uL (140-400) Neutrophils (%) (Auto) 48 % (31-73) Lymphocytes (%) (Auto) 45 % (24-48) Monocytes (%) (Auto) 4 % (0-9) Eosinophils (%) (Auto) 2 % (0-3) Basophils (%) (Auto) 1 % (0-3) Neutrophils # (Auto) 4.0 x10^3/uL (1.8-7.7) Lymphocytes # (Auto) 3.7 x10^3/uL (1.0-4.8) Monocytes # (Auto) 0.3 x10^3/uL (0.0-1.1) Eosinophils # (Auto) 0.1 x10^3/uL (0.0-0.7) Basophils # (Auto) 0.1 x10^3/uL (0.0-0.2) Sodium Level 141 mmol/L (136-145) Potassium Level 3.8 mmol/L (3.5-5.1) Chloride Level 104 mmol/L (98-107) Carbon Dioxide Level 24 mmol/L (21-32) Anion Gap 13 (6-14) Blood Urea Nitrogen 17 mg/dL (7-20) Creatinine 0.7 mg/dL (0.6-1.0) Estimated GFR (Cockcroft-Gault) 84.5 BUN/Creatinine Ratio 24 (6-20) Glucose Level 103 mg/dL (70-99) Calcium Level 9.8 mg/dL (8.5-10.1) Magnesium Level 2.1 mg/dL (1.8-2.4) Total Bilirubin 0.5 mg/dL (0.2-1.0) Aspartate Amino Transf (AST/SGOT) 32 U/L (15-37) Alanine Aminotransferase (ALT/SGPT) 64 U/L (14-59) Alkaline Phosphatase 118 U/L (46-116) Troponin I High Sensitivity < 4 ng/L (4-50) 4 ng/L (4-50) < 4 ng/L (4-50) SO-Kmm-I-Type Natriuretic Peptide 20 pg/mL (0-124) Total Protein 7.5 g/dL (6.4-8.2) Albumin 4.1 g/dL (3.4-5.0) Albumin/Globulin Ratio 1.2 (1.0-1.7) Lipase 90 U/L (73-393) Urine Collection Type Unknown Urine Color Yellow Urine Clarity Clear Urine pH 5.5 (<5.0-8.0) Urine Specific [place] 1.010 (1.000-1.030) Urine Protein Negative mg/dL (NEG-TRACE) Urine Glucose (UA) Negative mg/dL (NEG) Urine Ketones (Stick) Negative mg/dL (NEG) Urine Blood Trace (NEG) Urine Nitrite Negative (NEG) Urine Bilirubin Negative (NEG) Urine Urobilinogen Dipstick 0.2 mg/dL (0.2 mg/dL) Urine Leukocyte Esterase Negative (NEG) Urine RBC 0 /HPF (0-2) Urine WBC 1-4 /HPF (0-4) Urine Squamous Epithelial Cells Few /LPF Urine Bacteria Few /HPF (0-FEW) Triglycerides Level 140 mg/dL (0-150) Cholesterol Level 215 mg/dL (0-200) LDL Cholesterol, Calculated 137 mg/dL (0-100) VLDL Cholesterol, Calculated 28 mg/dL (0-40) Non-HDL Cholesterol Calculated 165 mg/dL (0-129) HDL Cholesterol 50 mg/dL (40-60) Cholesterol/HDL Ratio 4.3 Thyroid Stimulating Hormone (TSH) 1.885 uIU/mL (0.358-3.74) Assessment and Plan Assessmemt and Plan Problems Medical Problems: (1) Chest pain Status: Acute Comment Review of Relevant I have reviewed the following items pete (where applicable) has been applied. Medications: Current Medications Medications (Trade) Dose Ordered Sig/Yani Route PRN Reason Start Time Stop Time Status Last Admin Dose Admin Aspirin (Aspirin Chewable) 324 mg 1X ONCE PO 04/29/21 16:00 04/29/21 16:01 DC 04/29/21 16:06 Atorvastatin Calcium (Lipitor) 20 mg DAILY PO 04/30/21 09:00 04/30/21 09:23 Lisinopril (Prinivil) 10 mg DAILY PO 04/30/21 09:00 04/30/21 09:24 Cetirizine HCl (ZyrTEC) 10 mg DAILY PO 04/30/21 09:00 04/30/21 09:23 Aspirin (Ecotrin) 81 mg [id number] PO 04/30/21 08:00 04/30/21 09:23 Pantoprazole Sodium (Protonix) 40 mg BIDAC PO 04/29/21 21:30 04/30/21 06:10 Justifications for Admission Other Justification PERLA CAIN MD Apr 30, 2021 10:08
[2021-04-30 11:00] VITALS: BP 132/70
--- NOTE | 2021-04-30 11:54 | NUR ---
SS following for discharge planning. SS reviewed pt chart and discussed with pt RN. Pt is from home and is currently on room air. Cardiology consulted. ECHO ordered. Self pay. Med Assist following. SS will continue to follow for discharge planning.
[2021-04-30 14:52] VITALS: BP 103/60
--- NOTE | 2021-04-30 16:35 | CARD ---
MR#: [id number] Date of Study: 04/30/2021 Ordering Physician: SARAVANAN GOMEZ, Referring Physician: SARAVANAN GOMEZ, Tech: Dayanara Harman Taina, [facility] APPROVED REPORT EXAM: Two-dimensional and M-mode echocardiogram with Doppler and color Doppler. Other Information Quality : AverageHR: 71bpm INDICATION Chest Pain RISK FACTORS Hypertension Hyperlipidemia Smoking 2D DIMENSIONS Left Atrium(2D)2.8 (1.6-4.0cm)IVSd0.8 (0.7-1.1cm) Aortic Root(2D)3.0 (2.0-3.7cm)LVDd4.3 (3.9-5.9cm) LVOT Diameter2.0 (1.8-2.4cm)PWd1.1 (0.7-1.1cm) LVDs1.4 (2.5-4.0cm)FS (%) 66.3 % SV66.3 ml Aortic Valve AoV Peak Yo.104.2cm/sAoV VTI25.5cm AO Peak GR.4.3mmHgLVOT VTI 18.59cm AO Mean GR.3mmHg Mitral Valve MV E Sdyppmwu67.5cm/sMV E Peak Gr.3mmHg MV DECEL [id number] A Ptbtorcq33.9cm/s MV E Mean Gr.1mmHgE/A Ratio0.8 TDI Lateral E' P. V9.59cm/sMedial E' P. V7.66cm/s E/Lateral E'6.3E/Medial E'7.9 Tricuspid Valve TR P. Zqexkkda256kk/sRAP [id number] TR Peak Gr.83ehRfDDBM23ggFx LEFT VENTRICLE The left ventricle is normal size. There is borderline concentric left ventricular hypertrophy. The l eft ventricular systolic function is normal and the ejection fraction is within normal range. The Eje ction Fraction is 50-55%. There is normal LV segmental wall motion. Transmitral Doppler flow pattern is Grade II-pseudonormal filling dynamics. RIGHT VENTRICLE The right ventricle is normal size. There is normal right ventricular wall thickness. The right ventr icular systolic function is normal. ATRIA The left atrium size is normal. The right atrium size is normal. The interatrial septum is intact wit h no evidence for an atrial septal defect or patent foramen ovale as noted on 2-D or Doppler imaging. AORTIC VALVE The aortic valve is normal in structure and function. Doppler and Color Flow revealed trace aortic re gurgitation. Calculated aortic valve area is 2.37 cm2 with maximum pressure gradient of 6 mmHg and me an pressure gradient of 3 mmHg. There is no significant aortic valvular stenosis. MITRAL VALVE The mitral valve is normal in structure and function. There is no evidence of mitral valve prolapse. There is no mitral valve stenosis. Doppler and Color-flow revealed trace mitral regurgitation. TRICUSPID VALVE The tricuspid valve is normal in structure and function. Doppler and Color Flow revealed trace tricus pid regurgitation with an estimated PAP of 28 mmHg. There is no tricuspid valve stenosis. PULMONIC VALVE The pulmonic valve is not well visualized. Doppler and Color Flow revealed trace pulmonic valvular re gurgitation. GREAT VESSELS The aortic root is normal in size. The IVC is normal in size and collapses >50% with inspiration. PERICARDIAL EFFUSION There is no evidence of significant pericardial effusion. Critical Notification Critical Value: No <Conclusion> The left ventricle is normal size. The left ventricular systolic function is normal and the ejection fraction is within normal range. The Ejection Fraction is 50-55%. There is borderline concentric left ventricular hypertrophy. Doppler and Color Flow revealed trace aortic regurgitation. There is no significant aortic valvular stenosis. Doppler and Color-flow revealed trace mitral regurgitation. Doppler and Color Flow revealed trace tricuspid regurgitation with an estimated PAP of 28 mmHg. Signed by : Khang Brito MD Electronically Approved : 04/30/2021 16:34:56
--- NOTE | 2021-04-30 17:45 | NUR ---
Discharge Note: ALICJA MURPHY [address] [place] [address] Discharge instructions and discharge home medications reviewed with Patient and a copy given. All questions have been answered and understanding verbalized. The following instructions and handouts were given: discharge instructions, follow ups, CP education, smoking cessation education. Discontinued lines and drains: Peripheral IV intact. Patient discharged to Home or Self Care with Spouse via Wheelchair at 1745.
--- NOTE | 2021-05-05 17:10 | PDOC3 ---
Discharge Summary Visit Information Date of Admission: Apr 29, 2021 Date of Discharge: Apr 30, 2021 Admitting Diagnosis: Chest pain Final Diagnosis Problems Medical Problems: (1) Chest pain Status: Acute Brief Hospital Course Allergies Allergies Coded Allergies Type Severity Reaction Last Updated Verified dicyclomine Allergy Severe swelling 07/09/14 Yes diphenhydramine HCl Allergy Intermediate HIVES 04/26/13 Yes Sulfa (Sulfonamide Antibiotics) Allergy Mild RASH 04/26/13 Yes Brief Hospital Course Ms Snyder is a 65 year old female smoker with PMHx HTN, HLD who presents to ED c/o sudden onset chest pain. Pain began at 0300 on 04/29/21. Pain was sharp, burning and radiated into both sides of her jaw and her shoulder. She though it was bad acid reflux and has taken 4-5 tums every few hours with minimal improvement. No diaphoresis. A little nausea. No cough, no abdominal pain, no vomiting. No recent travel or sick contacts. She smokes 1/2 pack a day. Patient was vaccinated for COVID-19, she had not received the booster shot yet. She does have family history of mother with premature CAD with multiple stents She did have a cardiac evaluation in 2014, negative lexiscan MPI at the time. WBC 8.3, Hb 15.1, platelets 98, NA 141, K3.8, BUN 17, CR 0.7, glucose 103, calcium 9.8, mag 2.1 total bilirubin 0.5, AST 32, ALT 64, alkaline phosphatase 118, NT proBNP 28, high-sensitivity troponin is 4, albumin 4.1 EKG sinus rhythm rate of [address] segment elevations no T WI. Chest radiograph with some possible left basilar atelectasis otherwise no acute abnormalities. Admitted for observation 04/30: No further chest pain. Final troponin negative. Patient is asking for food. P.o. trial to assess the severity of what is likely GERD would be appropriate. Echocardiogram pending. Patient wants to defer an angiogram and would prefer to have an outpatient stress test for further restratification Consults: Cardiology Echocardiogram reassuring: The left ventricle is normal size. The left ventricular systolic function is normal and the ejection fraction is within normal range. The Ejection Fraction is 50-55%. There is borderline concentric left ventricular hypertrophy. Doppler and Color Flow revealed trace aortic regurgitation. There is no significant aortic valvular stenosis. Doppler and Color-flow revealed trace mitral regurgitation. Doppler and Color Flow revealed trace tricuspid regurgitation with an estimated PAP of 28 mmHg. Problem list: Chest pain - typical chest pain. Troponin normal and EKG not concerning, nor is CXR. Mother with CAD and smoker are risk factors. Had negative echo and MPI in 2015. She wishes to complete work-up outpatient. HTN - on lisinopril, controlled. HLP - on lipitor, GERD - on PPI. taking zegerid OTC. Will give protonix inpatient Smoker - has 30+ pack year history. Counseled for 9 minutes on cessation. Thrombocytopenia - no clear etiology. Needs outpatient monitoring Minimally elevated alkaline phosphatase - no biliary disease history, would recommend outpatient f/u Greater than 30 minutes spent on d/c home with self care. Discharge Information Condition at Discharge: Improved Follow Up: Weeks (1) Disposition/Orders: D/C to Home Scheduled Albuterol Sulfate (Proair Hfa Inhaler) 8.5 Gm Hfa.aer.ad, 2 PUFF IH PRN Q4-6HRS for Cough,wheezing, #1 Ref 2 Prescribed by: YANETH KELLY on 07/23/14 1054 Last Action: Continued on 04/29/212128 by PERLA CAIN MD Aspirin (Aspirin Ec) 81 Mg Tablet.dr, 81 MG PO DAILYWBKFT for Chest pain for 30 Days, #30 Ref 5 Prescribed by: PERLA CAIN MD on 04/30/21 1008 Atorvastatin Calcium (Atorvastatin Calcium) 20 Mg Tablet, 20 MG PO DAILY, (Reported) Entered as Reported by: RENITA BAUTISTA on 04/26/13917 Last Action: Continued on 04/29/212128 by PERLA CAIN MD Lisinopril (Lisinopril) 10 Mg Tablet, 10 MG PO DAILY, (Reported) Entered as Reported by: RENITA BAUTISTA on 04/26/13917 Last Action: Continued on 04/29/212128 by PERLA CAIN MD Loratadine (Claritin) 10 Mg Tablet, 1 TAB PO DAILY, #30 Ref 5 (Reported) Entered as Reported by: AUBREE BRYANT on 07/22/14 2342 Last Action: Converted on 04/29/212128 by PERLA CAIN MD Omeprazole/Sodium Bicarbonate (Zegerid 20 Mg Capsule) 1 Each Capsule, 1 EACH PO DAILY, (Reported) Entered as Reported by: RENITA BAUTISTA on 04/26/13 0918 Justicifation of Admission Dx: Justifications for Admission: Justification of Admission Dx: PERLA Venegas MD May 05, 2021 17:10
== END 2021-04-30 17:50 | disposition home or self-care (01) ==
LOC: ER 15:29 → ED HOLD 18:07 → 6 SOUTH 21:39
PROVIDERS: ADMIT Internal Medicine; ATTEND Internal Medicine
DX: R07.89 Other chest pain (principal); I10 Essential (primary) hypertension; E78.5 Hyperlipidemia, unspecified; K21.9 Gastro-esophageal reflux disease without esophagitis; D69.6 Thrombocytopenia, unspecified; J44.9 Chronic obstructive pulmonary disease, unspecified; M19.90 Unspecified osteoarthritis, unspecified site; E78.00 Pure hypercholesterolemia, unspecified; R79.89 Other specified abnormal findings of blood chemistry; F17.210 Nicotine dependence, cigarettes, uncomplicated; Z79.899 Other long term (current) drug therapy; Z90.710 Acquired absence of both cervix and uterus; Z90.49 Acquired absence of other specified parts of digestive tract; Z79.82 Long term (current) use of aspirin
CPT/HCPCS: 36415; 71045; 80053; 80061; 81001; 83690; 83735; 83880; 84443; 84484; 85025; 93005; 93306; 99285; G0378; G0379; C8929